=== PATIENT | male | born 1975 | race Caucasian/White ===

== ENCOUNTER 2020-09-08 12:48 | Emergency (ER) | payer MEDICAID ==
[~2020-09-08] VITALS: Ht 180.3 cm; Wt 100.0 kg
[~2020-09-08 12:48] MED LIST: DIVA500T4 PO; PALI234D IM
== END 2020-09-08 13:17 | disposition home or self-care (01) ==
LOC: ER 12:48
DX: J02.9 Acute pharyngitis, unspecified (principal); R51.9 Headache, unspecified; R09.89 Other specified symptoms and signs involving the circulatory and respiratory systems; Z20.828 Contact with and (suspected) exposure to other viral communicable diseases
CPT/HCPCS: 36415; 87635; 99283

== ENCOUNTER 2020-10-25 10:58 | Emergency (ER) | payer MEDICAID ==
[~2020-10-25] VITALS: Ht 180.3 cm; Wt 11.4 kg
[2020-10-25] MEDS ORDERED: morphine 4 MG/ML inj SYRINge IV ONE (11:55)
[2020-10-25] MEDS ORDERED: ondansetron/PF 4mg/2ml inj IV ONE (11:55)
[2020-10-25] MEDS ORDERED: normal saline 1000ml 1,000 ML IV ONE (11:55)
[2020-10-25] MEDS ORDERED: clindamycin 600mg/D5W 50ml 50 ML IV ONE (11:55)
[2020-10-25 12:56] LABS: BASOPHILS # (AUTO) 0.1 X10'3 (0-0.2); BASOPHILS % (AUTO) 0.5 % (0-1); EOSINOPHILS # (AUTO) 0.1 X10'3 (0-0.9); EOSINOPHILS % (AUTO) 0.8 % (0-6); HEMATOCRIT 44.1 % (42.0-52.0); HEMOGLOBIN 14.9 g/dl (14.0-17.9); LYMPHOCYTES # (AUTO) 1.4 X10'3 (1.1-4.8); LYMPHOCYTES % (AUTO) 11.5 % (21-51); MEAN CORPUSCULAR HEMOGLOBIN 31.1 PG (27.0-31.0); MEAN CORPUSCULAR HGB CONC 33.9 g/dL (33.0-36.5); MEAN CORPUSCULAR VOLUME 91.8 FL (78-98); MEAN PLATELET VOLUME 7.6 FL (7.4-10.4); MONOCYTES # (AUTO) 0.9 X10'3 (0-0.9); MONOCYTES % (AUTO) 7.3 % (2-12); NEUTROPHILS # (AUTO) 9.5 X10'3 (1.8-7.7); NEUTROPHILS % (AUTO) 79.9 % (42-75); PLATELET COUNT 338 X10'3 (140-440); RED CELL DISTRIBUTION WIDTH 13.3 % (11.5-14.5); WHITE BLOOD COUNT 11.9 X10'3 (4.5-11.0)
[2020-10-25 13:10] LABS: ALANINE AMINOTRANSFERASE 18 U/L (12-78); ALBUMIN 4.3 G/DL (3.4-5.0); ALBUMIN/GLOBULIN RATIO 1.2 (1.1-1.5); ALKALINE PHOSPHATASE 84 IU/L (46-116); ANION GAP 12 (8-16); ASPARTATE AMINO TRANSFERASE 13 U/L (10-37); BILIRUBIN,TOTAL 0.9 MG/DL (0.1-1.0); BLOOD UREA NITROGEN 9 MG/DL (7-18); BUN/CREATININE RATIO 9.9 (5.4-32.0); CALCIUM 9.7 MG/DL (8.5-10.1); CHLORIDE 101 MMOL/L (99-107); CREATININE 0.91 MG/DL (0.60-1.10); GLUCOSE 99 MG/DL (70-104); SODIUM 140 MMOL/L (135-145); eGFR > 90 ML/MIN
[2020-10-25] MEDS ORDERED: iohexol 300mg/ml 100ml inj. ONE (13:32)
--- NOTE | 2020-10-25 13:54 | NUR ---
Pt to CT via w/c
[2020-10-25] MEDS ORDERED: ondansetron 4mg/5ml UD cup PO ONE (15:55)
[2020-10-25] MEDS ORDERED: HYDROmorphone 2mg tablet PO ONE (15:55)
[2020-10-25] MEDS ORDERED: ondansetron 4mg rapidly disintigrating tab PO ONE (16:10)
[2020-10-25] MEDS ORDERED: HYDROmorphone 1 mg/ml syringe IV PRN (16:20)
[2020-10-25 16:28] VITALS: BP 124/68
--- NOTE | 2020-10-25 17:29 | NUR ---
Provider at bedside for I & D.
[2020-10-25] MEDS ORDERED: SULF1TAB49 PO (17:40)
[2020-10-25] MEDS ORDERED: CEPH250T PO (17:40)
== END 2020-10-25 17:47 | disposition home or self-care (01) ==
LOC: ER 10:59
DX: L02.31 Cutaneous abscess of buttock (principal); F15.90 Other stimulant use, unspecified, uncomplicated; Z86.14 Personal history of Methicillin resistant Staphylococcus aureus infection; Z72.89 Other problems related to lifestyle; Z88.0 Allergy status to penicillin; Z79.2 Long term (current) use of antibiotics; Z79.899 Other long term (current) drug therapy
CPT/HCPCS: 10060; 36415; 74177; 80053; 83605; 84145; 85025; 87040; 87070; 87077; 87186; 96365; 96375; 99285; J1170; J2270; J2405; J7030; Q9967; J3490

== ENCOUNTER 2020-10-30 14:16 | Emergency (ER) | payer MEDICAID ==
[~2020-10-30] VITALS: Ht 180.3 cm; Wt 99.4 kg
[~2020-10-30 14:16] MED LIST changes: +CEPH250T PO; +SULF1TAB49 PO
[2020-10-30 14:21] VITALS: BP 123/84
--- NOTE | 2020-10-30 15:25 | NUR ---
LUCIUS Santacruz at bedside.
[2020-10-30] MEDS ORDERED: hyDROXYzine 50 mg/ml injection ***IM only IM ONE (15:30)
== END 2020-10-30 15:58 | disposition home or self-care (01) ==
LOC: ER 14:17
DX: G47.00 Insomnia, unspecified (principal); F41.9 Anxiety disorder, unspecified; F32.9 Major depressive disorder, single episode, unspecified; F15.90 Other stimulant use, unspecified, uncomplicated; Z72.89 Other problems related to lifestyle; Z88.0 Allergy status to penicillin; Z79.2 Long term (current) use of antibiotics; Z79.899 Other long term (current) drug therapy
CPT/HCPCS: 96372; 99283; J3410

== ENCOUNTER 2021-02-26 11:03 | Emergency (ER) | payer MEDICAID ==
[~2021-02-26] VITALS: Ht 180.3 cm; Wt 100.0 kg
[~2021-02-26 11:03] MED LIST changes: -CEPH250T PO; -SULF1TAB49 PO
[2021-02-26] MEDS ORDERED: acetaminophen 325mg tablet PO ONE (11:50)
[2021-02-26] MEDS ORDERED: LIDOcaine 1% W/epiNEPHrine 1:200,000 10ml vial IJ ONE (11:55)
[2021-02-26] MEDS ORDERED: SULF1TAB49 PO (12:23)
[2021-02-26 13:09] VITALS: BP 140/91
== END 2021-02-26 13:10 | disposition home or self-care (01) ==
LOC: ER 11:03
DX: L02.415 Cutaneous abscess of right lower limb (principal); F31.9 Bipolar disorder, unspecified; F15.90 Other stimulant use, unspecified, uncomplicated; Z72.89 Other problems related to lifestyle; Z79.899 Other long term (current) drug therapy; Z88.0 Allergy status to penicillin
CPT/HCPCS: 10060; 99283

== ENCOUNTER 2021-04-25 16:48 | Emergency (ER) | payer MEDICAID ==
[~2021-04-25] VITALS: Ht 180.3 cm; Wt 102.3 kg
[2021-04-25] MEDS ORDERED: ondansetron 4mg rapidly disintigrating tab PO ONE (17:00)
[2021-04-25 17:04] VITALS: BP 132/78
[2021-04-25 17:37] LABS: BASOPHILS # (AUTO) 0.1 X10'3 (0-0.2); BASOPHILS % (AUTO) 0.7 % (0-1); EOSINOPHILS # (AUTO) 0.2 X10'3 (0-0.9); EOSINOPHILS % (AUTO) 2.6 % (0-6); HEMATOCRIT 47.5 % (42.0-52.0); HEMOGLOBIN 16.4 g/dl (14.0-17.9); LYMPHOCYTES # (AUTO) 2.4 X10'3 (1.1-4.8); LYMPHOCYTES % (AUTO) 27.8 % (21-51); MEAN CORPUSCULAR HEMOGLOBIN 31.2 PG (27.0-31.0); MEAN CORPUSCULAR HGB CONC 34.5 g/dL (33.0-36.5); MEAN CORPUSCULAR VOLUME 90.5 FL (78-98); MEAN PLATELET VOLUME 7.3 FL (7.4-10.4); MONOCYTES # (AUTO) 0.5 X10'3 (0-0.9); MONOCYTES % (AUTO) 5.9 % (2-12); NEUTROPHILS # (AUTO) 5.4 X10'3 (1.8-7.7); PLATELET COUNT 389 X10'3 (140-440); RED BLOOD COUNT 5.25 X10'6 (4.70-6.10); RED CELL DISTRIBUTION WIDTH 13.4 % (11.5-14.5); WHITE BLOOD COUNT 8.5 X10'3 (4.5-11.0)
[2021-04-25] MEDS ORDERED: ketorolac tromethamine 15mg/ml inj. IM ONE (17:40)
[2021-04-25 17:48] LABS: ALANINE AMINOTRANSFERASE 33 U/L (12-78); ALBUMIN 4.5 G/DL (3.4-5.0); ALBUMIN/GLOBULIN RATIO 1.2 (1.1-1.5); ALKALINE PHOSPHATASE 88 IU/L (46-116); ANION GAP 12 (8-16); ASPARTATE AMINO TRANSFERASE 18 U/L (10-37); BILIRUBIN,TOTAL 0.4 MG/DL (0.1-1.0); BLOOD UREA NITROGEN 7 MG/DL (7-18); BUN/CREATININE RATIO 7.2 (5.4-32.0); CALCIUM 8.9 MG/DL (8.5-10.1); CHLORIDE 105 MMOL/L (99-107); CREATININE 0.97 MG/DL (0.60-1.10); GLUCOSE 101 MG/DL (70-104); POTASSIUM 4.3 MMOL/L (3.5-5.1); SODIUM 144 MMOL/L (135-145); TOTAL CARBON DIOXIDE 27.1 MMOL/L (24-32); TOTAL PROTEIN 8.2 G/DL (6.4-8.2); eGFR 84 ML/MIN
[2021-04-25] MEDS ORDERED: ONDA4TAB6 PO (18:11)
== END 2021-04-25 18:30 | disposition home or self-care (01) ==
LOC: ER 16:48
DX: A08.4 Viral intestinal infection, unspecified (principal); F31.9 Bipolar disorder, unspecified; F15.10 Other stimulant abuse, uncomplicated; Z88.0 Allergy status to penicillin; Z88.8 Allergy status to other drugs, medicaments and biological substances
CPT/HCPCS: 36415; 80053; 85025; 87635; 96372; 99283; C9803; J1885

== ENCOUNTER 2022-02-03 19:39 | Emergency (ER) | payer MEDICAID ==
[~2022-02-03] VITALS: Ht 180.3 cm; Wt 102.0 kg
[~2022-02-03 19:39] MED LIST changes: +ONDA4TAB6 PO
[2022-02-03 20:03] VITALS: BP 108/67
[2022-02-03] MEDS ORDERED: CEPH250T PO (22:20)
[2022-02-03] MEDS ORDERED: DOXY100C77 PO (22:20)
== END 2022-02-03 22:40 | disposition home or self-care (01) ==
LOC: ER 19:39
DX: L03.115 Cellulitis of right lower limb (principal); F31.9 Bipolar disorder, unspecified; F15.90 Other stimulant use, unspecified, uncomplicated; Z72.89 Other problems related to lifestyle; Z79.899 Other long term (current) drug therapy; Z88.0 Allergy status to penicillin
CPT/HCPCS: 99283